=== PATIENT | male | born 1990 | race Caucasian/White ===

== ENCOUNTER 2021-12-14 17:45 | Emergency (ER) | payer OTHER ==
[2021-12-14 18:12] VITALS: BP 111/70; PULSE 73; TEMP 98.2; BMI 21.8
[2021-12-14] MEDS ORDERED: EMTRICITABINE 200MG/TENOFOVIR 300MG PO ONE (20:07)
[2021-12-14] MEDS ORDERED: RALTEGRAVIR POTASSIUM 400 MG TAB PO ONE (20:07)
[2021-12-14] MEDS ORDERED: HIV POST EXPOSURE PROPHYLAXIS KIT NR ONE (20:44)
[2021-12-14] MEDS ORDERED: HIV POST EXPOSURE PROPHYLAXIS KIT PO ONE (20:59)
[2021-12-14 21:13] LABS: BASO % 0.6 % (0-2.0); EOS % 2.2 % (0-4.5); HEMATOCRIT 44.6 % (35.4-49); HEMOGLOBIN 14.9 GM/dL (11.7-16.9); LYMPH % 31.7 % (8-40); MCHC 33.5 g/dl (32.0-35.9); MEAN CELL VOLUME 86.5 fl (80-96); MEAN PLT VOLUME 7.1 fl (7.5-11.1); MONO % 8.2 % (3.8-10.2); NEUT % 57.3 % (42.8-82.8); PLATELET COUNT 300 10^3/uL (134-434); RBC 5.16 M/mm3 (4.00-5.60); RDW 14.4 % (11.9-15.9); WHITE BLOOD COUNT 7.8 K/mm3 (4.0-10.0)
[2021-12-14 21:28] LABS: PH,URINE 5.5 (5.0-8.0); URINE APPEARANCE CLEAR; URINE BILIRUBIN NEGATIVE (NEGATIVE); URINE COLOR YELLOW; URINE GLUCOSE (UA) NEGATIVE (NEGATIVE); URINE KETONE NEGATIVE (NEGATIVE); URINE LEUK ESTERASE NEGATIVE (NEGATIVE); URINE NITRITE NEGATIVE (NEGATIVE); URINE PROTEIN NEGATIVE (NEGATIVE); URINE UROBILINOGEN 0.2 mg/dL (0.2-1.0)
[2021-12-14 21:31] LABS: CALCIUM 9.2 mg/dL (8.5-10.1)
[2021-12-14 21:32] LABS: ALBUMIN 4.5 g/dl (3.4-5.0); BLOOD UREA NITROGEN 21.2 mg/dL (7-18)
[2021-12-14 21:34] LABS: URIC ACID 5.9 mg/dL (2.6-7.2)
[2021-12-14 21:35] LABS: CREATININE 1.4 mg/dL (0.55-1.3); PHOSPHOROUS 4.7 mg/dL (2.5-4.9)
[2021-12-14 21:36] LABS: BILIRUBIN,TOTAL 0.4 mg/dL (0.2-1); TOT PROT 7.9 g/dl (6.4-8.2)
[2021-12-14 22:25] LABS: HIV INTERPRETATION NEGATIVE (NEGATIVE)
== END 2021-12-14 22:34 | disposition home or self-care (01) ==
LOC: JERFT 17:45
DX: B16.9 Acute hepatitis B without delta-agent and without hepatic coma (principal); Z72.52 High risk homosexual behavior
CPT/HCPCS: 36415; 80053; 81003; 82465; 83615; 84100; 84478; 84550; 85025; 86704; 86780; 86803; 87340; 87389; 87491; 87517; 87591; 99283-25